=== PATIENT | male | born 1980 | race Caucasian/White ===

== ENCOUNTER 2016-11-01 18:16 | Emergency (ER) | payer OTHER ==
[2016-11-01 19:22] LABS: CLARITY SLIGHTLY HAZY (CLEAR); COLOR YELLOW (YELLOW); SPECIFIC GRAVITY 1.025 (1.001-1.030)
[2016-11-01 19:23] LABS: BILIRUBIN NEGATIVE (NEGATIVE); BLOOD 2+ Ery/uL (NEGATIVE); GLUCOSE (U) NORMAL (NORMAL); KETONE (U) TRACE mg/dL (NEGATIVE); LEUKOCYTES NEGATIVE Leu/uL (NEGATIVE); NITRITE NEGATIVE (NEGATIVE); PROTEIN 2+ mg/dL (NEGATIVE); pH 6.5 (5.0-9.0)
[2016-11-01 20:14] LABS: BASOPHIL 1.7 % (0-2); EOSINOPHIL 2.3 % (0-5); HCT 37.9 % (42.0-52.0); HGB 13.4 g/dl (13.2-18.0); LYMPHOCYTE 44.4 % (15-48); MCH 28.4 pg (25.0-31.0); MCHC 35.4 g/dL (32.0-36.0); MCV 80.3 fL (78.0-100.0); MONOCYTE 11.9 % (0-12); MPV 8.6 fL (6.0-9.5); NEUTROPHIL 39.7 % (41-80); PLT 242 K/uL (150-400); RBC 4.72 M/uL (4.70-6.00); RDW 13.1 % (11.5-14.0); WBC 5.2 K/uL (4.0-10.5)
[2016-11-01 20:19] LABS: INR 1.01 (0.9-1.2); PROTHROMBIN TIME 12.9 SECONDS (11.7-14.0); PTT 28.5 SECONDS (23.2-31.4)
[2016-11-01 20:30] LABS: LACTIC ACID 0.9 mmol/L (0.5-2.2)
[2016-11-01 20:31] LABS: BILIRUBIN - TOTAL 0.4 mg/dL (0.1-1.0); CREATININE 1.2 mg/dL (0.7-1.2); GLOBULIN (CALCULATION) 2.4 g/dL (2.2-4.2); POTASSIUM 4.1 mmol/L (3.5-5.1); TOTAL PROTEIN 6.4 g/dL (6.4-8.3)
== END 2016-11-01 21:56 | disposition home or self-care (01) ==
LOC: FER 18:16
PROVIDERS: Emergency Medicine; Nurse Practitioner
DX: R10.12 Left upper quadrant pain (principal); R50.9 Fever, unspecified; R11.2 Nausea with vomiting, unspecified; R07.89 Other chest pain; R60.0 Localized edema; R82.90 Unspecified abnormal findings in urine; N40.0 Benign prostatic hyperplasia without lower urinary tract symptoms; E66.9 Obesity, unspecified; Z83.3 Family history of diabetes mellitus; Z79.899 Other long term (current) drug therapy
CPT/HCPCS: 36415; 71010; 80053; 81001; 83605; 83690; 84484; 85025; 85610; 85730; 87040; 87088; J2405